=== PATIENT | female | born 2000 | race Caucasian/White ===

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

== ENCOUNTER 2018-03-28 16:44 | Emergency (ER) | payer OTHER ==
[2018-03-28 16:53] VITALS: BP 126/65
--- NOTE | 2018-03-28 17:26 | ER Document Report ---
HPI - HPI Patient complains to provider of: cough, congestiom Onset: Other - 2 day Quality of pain: No pain Pain Level: Denies Context: 17 yo non smoker with cough and congestion for few days. spouse same sx. no chest pain or sob. some fever. no hx asthma. Associated Symptoms: None Exacerbated by: Denies Relieved by: Denies Similar symptoms previously: Yes Recently seen / treated by doctor: No - ROS ROS below otherwise negative: Yes Systems Reviewed and Negative: Yes All other systems reviewed and negative - CONSTITUTIONAL Constitutional: REPORTS: Fever, Chills - RESPIRATORY Respiratory: REPORTS: Coughing Past Medical History - General Information source: Patient - Social History Smoking Status: Never Smoker Chew tobacco use (# tins/day): No Frequency of alcohol use: None Drug Abuse: None Lives with: Spouse/Significant other Family History: Reviewed & Not Pertinent Patient has suicidal ideation: No Patient has homicidal ideation: No - Medical History Medical History: Negative Renal/ Medical History: Denies: Hx Peritoneal Dialysis Surgical Hx: Negative Vertical Provider Document - CONSTITUTIONAL Agree With Documented VS: Yes Exam Limitations: No Limitations General Appearance: No Apparent Distress - INFECTION CONTROL TRAVEL OUTSIDE OF THE [place] IN LAST 30 DAYS: No - HEENT HEENT: Normal ENT Exam, Normocephalic - NECK Neck: Supple. negative: Lymphadenopathy-Left, Lymphadenopathy-Right - RESPIRATORY Respiratory: Breath Sounds Normal, No Respiratory Distress - CARDIOVASCULAR Cardiovascular: Regular Rate, Regular Rhythm - MUSCULOSKELETAL/EXTREMETIES Musculoskeletal/Extremeties: MAEW - NEURO Level of Consciousness: Awake - DERM Integumentary: No Rash Course - Vital Signs Vital signs: Temp Pulse Resp BP Pulse Ox 98.8 F 81 20 126/65 H 98 03/28/18 16:52 03/28/18 16:52 03/28/18 16:52 03/28/18 16:52 03/28/18 16:52 Discharge - Discharge Clinical Impression: Upper respiratory infection Qualifiers: URI type: unspecified viral URI Qualified Code(s): J06.9 - Acute upper respiratory infection, unspecified Condition: Good Disposition: HOME, SELF-CARE Instructions: Acetaminophen, Ibuprofen (General) ([facility]), Upper Respiratory Illness ([facility]) Additional Instructions: Drink plenty of fluids Sleep Tylenol Motrin Return if symptoms worsen Referrals: STEVEN,MAKAYLA, PA-C [Primary Care Provider] - Follow up as needed
== END 2018-03-28 17:39 | disposition home or self-care (01) ==
LOC: ER 16:44
DX: J06.9 Acute upper respiratory infection, unspecified (principal); R50.9 Fever, unspecified
CPT/HCPCS: 99283

== ENCOUNTER 2018-05-22 16:55 | Emergency (ER) | payer OTHER ==
--- NOTE | 2018-05-22 17:36 | RADIOLOGY REPORT (SQ) ---
EXAM DESCRIPTION: WRIST RIGHT 3 VIEWS COMPLETED DATE/TIME: 05/22/2018 5:28 pm REASON FOR STUDY: wrist/hand pain COMPARISON: None. NUMBER OF VIEWS: Three views. TECHNIQUE: AP, lateral, and oblique radiographic images acquired of the right wrist. LIMITATIONS: None. FINDINGS: MINERALIZATION: Normal. BONES: No acute fracture or dislocation. No worrisome bone lesions. Normal alignment. SOFT TISSUES: No soft tissue swelling. No foreign body. OTHER: No other significant finding. IMPRESSION: NEGATIVE STUDY OF THE RIGHT WRIST. NO RADIOGRAPHIC EVIDENCE OF ACUTE INJURY. TECHNICAL DOCUMENTATION: JOB ID: [id number] [employer]- All Rights Reserved Reading location - IP/workstation name: [email or web address]
[2018-05-22] MEDS ORDERED: HYDROCODONE/ACETAMINOPHEN 5-325 MG TABLET PO ONE (18:01)
--- NOTE | 2018-05-22 18:03 | ER Document Report ---
HPI - HPI Pain Level: 4 Notes: Patient presents with chief complaint of right wrist and hand pain 2-3 days. Patient denies any injury. - CONSTITUTIONAL Constitutional: DENIES: Fever, Chills - EENT EENT: DENIES: Sore Throat, Ear Pain, Eye problems - NEURO Neurology: DENIES: Headache - CARDIOVASCULAR Cardiovascular: DENIES: Chest pain - RESPIRATORY Respiratory: DENIES: Trouble Breathing, Coughing - GASTROINTESTINAL Gastrointestinal: DENIES: Abdominal Pain, Black / Bloody Stools - URINARY Urinary: DENIES: Dysuria, Urgency, Frequency - MUSCULOSKELETAL Musculoskeletal: REPORTS: Extremity pain Past Medical History - General Information source: Patient - Social History Smoking Status: Never Smoker Chew tobacco use (# tins/day): No Frequency of alcohol use: None Drug Abuse: None Lives with: Family Family History: Reviewed & Not Pertinent Patient has suicidal ideation: No Patient has homicidal ideation: No - Medical History Medical History: Negative Renal/ Medical History: Denies: Hx Peritoneal Dialysis Past Surgical History: Reports: Hx Abdominal Surgery Vertical Provider Document - CONSTITUTIONAL Notes: PHYSICAL EXAMINATION: GENERAL: Well-appearing, well-nourished and in no acute distress. HEAD: Atraumatic, normocephalic. EYES: Pupils equal round extraocular movements intact, conjunctiva are normal. ENT: Nares patent NECK: Normal range of motion LUNGS: No respiratory distress Musculoskeletal: Normal range of motion NEUROLOGICAL: Normal speech, normal gait. PSYCH: Normal mood, normal affect. SKIN: Warm, Dry, normal turgor, no rashes or lesions noted. - INFECTION CONTROL TRAVEL OUTSIDE OF THE [place] IN LAST 30 DAYS: No Course - Re-evaluation Re-evalutation: X-rays are negative for any acute findings. Patient will be discharged home in stable condition, plan to use splint for support, ice and elevate the extremity , take ibuprofen. Patient will be sent to follow-up with her primary care provider in the next 3-5 days, sooner if not improving. - Vital Signs Vital signs: Temp Pulse Resp BP Pulse Ox 99.1 F 78 18 133/69 H 99 05/22/18 17:02 05/22/18 17:02 05/22/18 17:02 05/22/18 17:02 05/22/18 17:02 Discharge - Discharge Clinical Impression: Hand pain, right Wrist pain Qualifiers: Laterality: right Qualified Code(s): M25.531 - Pain in right wrist Condition: Stable Disposition: HOME, SELF-CARE Additional Instructions: Your x-rays today were negative. Please use the splint as needed for comfort. Take ibuprofen 600 mg every 6 hours as needed for comfort. Ice and elevate the extremity. If your pain continues please follow-up with your primary care provider in the next 3-5 days you may also need to be referred to orthopedics. Referrals: TIMI GARRIDO I, DO [Primary Care Provider] - Follow up as needed
[2018-05-22 18:26] VITALS: BP 118/74
== END 2018-05-22 18:28 | disposition home or self-care (01) ==
LOC: ER 16:55
DX: M25.531 Pain in right wrist (principal); M79.641 Pain in right hand
CPT/HCPCS: 99283; 73110; L3908

== ENCOUNTER 2018-11-24 15:41 | Emergency (ER) | payer OTHER ==
[2018-11-24 16:12] VITALS: BP 131/64
--- NOTE | 2018-11-24 16:53 | ER Document Report ---
HPI - HPI Patient complains to provider of: bilateral breast pain Time Seen by Provider: 11/24/18 16:47 Onset: Other - 1-2 days Onset/Duration: Persistent Quality of pain: Achy Severity: Moderate Pain Level: 3 Context: Patient presents emergency department with complaints of bilateral breast pain. She reports pain started 1-2 days ago. Patient denies trauma. Patient reports she thought she might be so she took a test but it was negative. She denies fever vomiting diarrhea. No recent weight gain. Denies nipple discharge. No family history of breast cancer Associated Symptoms: None Exacerbated by: Denies Relieved by: Denies Similar symptoms previously: No Recently seen / treated by doctor: No - REPRODUCTIVE Reproductive: DENIES: : Past Medical History - General Information source: Patient Last Menstrual Period: 10/05/18 - Social History Smoking Status: Never Smoker Cigarette use (# per day): No Frequency of alcohol use: None Drug Abuse: None Lives with: Family Family History: Reviewed & Not Pertinent Patient has suicidal ideation: No Patient has homicidal ideation: No - Medical History Medical History: Negative Renal/ Medical History: Denies: Hx Peritoneal Dialysis Past Surgical History: Reports: Hx Abdominal Surgery Vertical Provider Document - CONSTITUTIONAL Agree With Documented VS: Yes Exam Limitations: No Limitations General Appearance: WD/WN, No Apparent Distress - INFECTION CONTROL TRAVEL OUTSIDE OF THE [place] IN LAST 30 DAYS: No - HEENT HEENT: Atraumatic, Normocephalic - NECK Neck: Normal Inspection, Supple. negative: Lymphadenopathy-Left, Lymphadenopathy-Right - RESPIRATORY Respiratory: No Respiratory Distress Notes: Bilateral breast even breast exam completed came I can put him in 36-37 no obvious mass no nipple discharge - CARDIOVASCULAR Cardiovascular: Regular Rate - GI/ABDOMEN Gastrointestinal: Abdomen Soft Course - Re-evaluation Re-evalutation: 11/24/18 16:56 will check for test. Patient instructed on Tylenol. Patient was also instructed on the importance of well supporting brassiere. - Vital Signs Vital signs: Temp Pulse Resp BP Pulse Ox 98.7 F 80 18 131/64 H 100 11/24/18 16:11 11/24/18 16:11 11/24/18 16:11 11/24/18 16:11 11/24/18 16:11 Discharge - Discharge Clinical Impression: Pain of both breasts Condition: Stable Disposition: HOME, SELF-CARE Additional Instructions: *You have been evaluated for breast pain *your test was negative *wear a good supporting brassiere *Follow up with your primary care provider within one week *Return to ED for worsening condition, changes, needs Forms: Return to Work Referrals: TIMI GARRIDO DO [Primary Care Provider] - Follow up in 1 week
== END 2018-11-24 18:27 | disposition home or self-care (01) ==
LOC: ER 15:41
DX: N64.4 Mastodynia (principal)
CPT/HCPCS: 36415; 84702; 99283